=== PATIENT | female | born 1990 | race Hispanic/Latino ===

== ENCOUNTER 2017-12-26 10:24 | Emergency (ER) | payer OTHER ==
[~2017-12-26] VITALS: Ht 172.7 cm; Wt 97.4 kg
[~2017-12-26 10:24] MED LIST: PRENATA7 OR
[2017-12-26 11:18] VITALS: BP 140/86
[2017-12-26] MEDS ORDERED: MUPIROCIN21 TOP (11:38)
[2017-12-26] MEDS ORDERED: CEPHALEXIN500 M1 PO (11:38)
== END 2017-12-26 11:45 | disposition home or self-care (01) | DRG 605 ==
LOC: ED 10:24
DX: S91.202A Unspecified open wound of left great toe with damage to nail, initial encounter (principal); W22.03XA Walked into furniture, initial encounter; Y92.009 Unspecified place in unspecified non-institutional (private) residence as the place of occurrence of the external cause

== ENCOUNTER 2020-07-20 22:54 | Emergency (ER) | payer BC, MEDICAID ==
[~2020-07-20] VITALS: Ht 172.7 cm; Wt 104.5 kg
[~2020-07-20 22:54] MED LIST changes: +CEPHALEXIN500 M1 PO; +MUPIROCIN21 TOP
[2020-07-20 23:41] LABS: HEMATOCRIT 37.3 % (37.0-47.0); HEMOGLOBIN 11.7 g/dl (12.0-16.0); IMMATURE GRANULOCYTES 0.2 % (0.0-5.0); MEAN CORPUSCULAR HGB 29.2 pG CALC (26.0-32.0); MEAN CORPUSCULAR HGB CONC 31.4 g/dL CAL (32.0-36.0); NEUT# 4.72 thou/uL (2.00-7.15); RED BLOOD COUNT 4.01 mill/uL (4.20-5.60); RED CELL DISTRI WIDTH 12.6 % (11.5-15.5)
[2020-07-20 23:55] LABS: ALBUMIN 3.8 g/dL (3.2-5.0); AMYLASE 54 u/l (30-110); ANION GAP 10 (6-22 (CALC)); BILIRUBIN, TOTAL 0.4 mg/dL (0.0-1.4); BUN 16 mg/dL (7-17); BUN/CREATININE RATIO 21 (12-20 (CALC)); CARBON DIOXIDE 31 mmol/l (22-30); CHLORIDE 101 mmol/l (95-108); CREATININE 0.8 mg/dL (0.5-1.0); GFR > 60 ML/MIN (>=60 (CALC)); GFR FOR AFR.AMER. > 60 ML/MIN (>=60 (CALC)); LIPASE 123 u/l (23-300); POTASSIUM 3.9 mmol/l (3.5-5.1); SODIUM 139 mmol/l (137-146); TOTAL PROTEIN 6.5 g/dL (6.3-8.2)
[2020-07-20 23:56] LABS: ALKALINE PHOSPHATASE 172 u/l (38-126); SGOT/AST 34 u/l (14-36)
[2020-07-21] MEDS ORDERED: PREVACID30 M3 PO (01:39)
[2020-07-21 01:40] VITALS: BP 108/66
== END 2020-07-21 01:45 | disposition home or self-care (01) | DRG 776 ==
LOC: ED 22:54
PROVIDERS: Emergency Medicine
DX: O99.63 Diseases of the digestive system complicating the puerperium (principal); K80.20 Calculus of gallbladder without cholecystitis without obstruction
CPT/HCPCS: Q9967

== ENCOUNTER 2020-11-19 20:29 | Emergency (ER) | payer BC, MEDICAID ==
[~2020-11-19] VITALS: Ht 172.7 cm; Wt 102.3 kg
[~2020-11-19 20:29] MED LIST changes: +PREVACID30 M3 PO
[2020-11-19 21:47] LABS: IMMATURE GRANULOCYTES 0.9 % (0.0-5.0); MEAN CELL VOLUME 90.5 fL CALC (80.0-100.0); MEAN CORPUSCULAR HGB 29.5 pG CALC (26.0-32.0); MEAN CORPUSCULAR HGB CONC 32.6 g/dL CAL (32.0-36.0); NEUT# 9.45 thou/uL (2.00-7.15); RED BLOOD COUNT 4.64 mill/uL (4.20-5.60); RED CELL DISTRI WIDTH 12.5 % (11.5-15.5)
[2020-11-19 21:53] LABS: ALKALINE PHOSPHATASE 96 u/l (38-126); AMYLASE 63 u/l (30-110); BUN 15 mg/dL (7-17); BUN/CREATININE RATIO 23 (12-20 (CALC)); CHLORIDE 106 mmol/l (95-108); CREATININE 0.6 mg/dL (0.5-1.0); GFR > 60 ML/MIN (>=60 (CALC)); GFR FOR AFR.AMER. > 60 ML/MIN (>=60 (CALC)); LIPASE 45 u/l (23-300); POTASSIUM 3.8 mmol/l (3.5-5.1); SGOT/AST 27 u/l (14-36); SODIUM 140 mmol/l (137-146)
[2020-11-19 21:54] LABS: HEMOGLOBIN 13.7 g/dl (12.0-16.0)
[2020-11-19 21:57] LABS: ALBUMIN 4.6 g/dL (3.2-5.0); ANION GAP 16 (6-22 (CALC)); BILIRUBIN, TOTAL 1.1 mg/dL (0.0-1.4); CARBON DIOXIDE 22 mmol/l (22-30); TOTAL PROTEIN 8.2 g/dL (6.3-8.2)
[2020-11-20] MEDS ORDERED: PROTONIX40 MG PO (01:16)
[2020-11-20 01:45] VITALS: BP 112/66
[2020-11-21] MEDS ORDERED: PROTONIX40 MG PO (13:34)
== END 2020-11-20 01:45 | disposition home or self-care (01) | DRG 392 ==
LOC: ED 20:29
PROVIDERS: Emergency Medicine
DX: R10.13 Epigastric pain (principal); R11.2 Nausea with vomiting, unspecified; E66.9 Obesity, unspecified
CPT/HCPCS: Q9967; S0164